=== PATIENT | male | born 1950 | race Caucasian/White ===

== ENCOUNTER → 2018-07-02 | Outpatient (CLI) | payer MEDICARE, OTHER ==
[~2018-07-02] MED LIST: ASPI81CH PO; ATEN25; CIPR500 PO; CYCL10 PO; Clobetasol Emol15 GM; DIAZ10 PO; DIAZ5; EPIN.3I; GABA300 PO; METF500 PO; METF500C PO; METR500 PO; NITR.6SL PO; OMEP20ER; ONDA4ODT MM; OXYC5 PO; PROM25 PO; Prilosec Otc20 MG PO; SACC250C PO; SOMA350 MG PO; TERA5 PO; Ultram50 MG PO; ZESTORETIC 20-121 EA PO; Zofran Odt4 MG SL
== END | disposition home or self-care (01) ==
LOC: LAB SHORT 11:28 → PLD 11:28
DX: D48.5 Neoplasm of uncertain behavior of skin (principal)
CPT/HCPCS: 88305

== ENCOUNTER 2019-03-06 05:50 | Day surgery (SDC) | payer MEDICARE, OTHER ==
[~2019-03-06] VITALS: Ht 200.7 cm; Wt 112.0 kg
--- NOTE | 2019-03-06 08:36 | NUR ---
PT ARRIVED BACK TO RECOVERY ROOM IN [facility]. RIGHT RADIAL TR BAND SITE STABLE WITH TR BAND AND WRIST BOARD IN PLACE. PT DRINKING COFFEE WITH FAMILY MEMBERS IN ROOM. PT DENIES CP. CALL LIGHT IN REACH.
--- NOTE | 2019-03-06 08:44 | NUR ---
DR GOODEN IN ROOM TO CONSULT WITH FAMILY AND PT.
--- NOTE | 2019-03-06 10:12 | NUR ---
DR LYMAN IN ROOM TO SEE PT AND FAMILY.
--- NOTE | 2019-03-06 10:54 | NUR ---
7 CC OF AIR REMOVED OVER 10 MIN FROM NOW DEFLATED RIGHT TR BAND - NO BLEEDING AND NO HEMATOMA. DISCHARGE INSTRUCTIONS REVIEWED ALL QUESTIONS ANSWERED.
--- NOTE | 2019-03-06 11:35 | NUR ---
DEFLATED RIGHT TR BAND REMOVED AND POLYMEM PLACED OVER SITE WITH WRIST BOARD IN PLACE - RIGHT RADIAL SITE SOFT NON-TENDER WITH NO HEMATOMA AND NO BLEEDING. 20 G IV DISCONTINUED FROM LEFT AC WITH INTACT CANNULA. RIGHT ARM SLING PLACED AND PT ESCORTED OUT VIA WHEELCHAIR ESCORT.
== END 2019-03-06 11:56 | disposition home or self-care (01) ==
LOC: MHTC 05:50
PROC: B201YZZ Plain Radiography of Multiple Coronary Arteries using Other Contrast (ICD-10-PCS; principal; 2019-03-06)
PROC: 4A033BC Measurement of Arterial Pressure, Coronary, Percutaneous Approach (ICD-10-PCS; principal; 2019-03-06)
PROC: 4A023N7 Measurement of Cardiac Sampling and Pressure, Left Heart, Percutaneous Approach (ICD-10-PCS; principal; 2019-03-06)
DX: I25.119 Atherosclerotic heart disease of native coronary artery with unspecified angina pectoris (principal); E78.00 Pure hypercholesterolemia, unspecified; I10 Essential (primary) hypertension; G89.29 Other chronic pain; M54.5 Low back pain; G47.33 Obstructive sleep apnea (adult) (pediatric); E66.9 Obesity, unspecified; Z88.2 Allergy status to sulfonamides; Z88.8 Allergy status to other drugs, medicaments and biological substances; Z95.5 Presence of coronary angioplasty implant and graft; Z79.899 Other long term (current) drug therapy; Z87.891 Personal history of nicotine dependence; Z68.27 Body mass index [BMI] 27.0-27.9, adult; Z99.89 Dependence on other enabling machines and devices
CPT/HCPCS: 85347; 93458; 93571; 99152; 99153; C1769; C1887; C1894; J0153; J1644; J2250; J3010; J7030; Q9967

== ENCOUNTER → 2019-12-20 | Outpatient (CLI) | payer MEDICARE, OTHER ==
[2019-12-20 10:30] LABS: BASOPHILS ABSOLUTE AUTO 0.05 K/mm3 (0.00-0.23); BASOPHILS PERCENT AUTO 1 % (0-2); EOSINOPHILS ABSOLUTE AUTO 0.25 K/mm3 (0.00-0.68); EOSINOPHILS PERCENT AUTO 3 % (0-6); Hematocrit 47.1 % (37.0-53.0); Hemoglobin 16.3 g/dL (13.5-17.5); IMMATURE GRAN ABSOLUTE AUTO 0.01 K/mm3 (0.00-0.10); IMMATURE GRAN PERCENT AUTO 0 % (0-1); LYMPHOCYTES ABSOLUTE AUTO 2.03 K/mm3 (0.84-5.20); LYMPHOCYTES PERCENT AUTO 26 % (21-46); MONOCYTES ABSOLUTE AUTO 0.71 K/mm3 (0.16-1.47); MONOCYTES PERCENT AUTO 9 % (4-13); Mean Corpuscular HGB Conc 34.6 g/dL (31.5-36.5); Mean Corpuscular Volume 93 fL (80-100); Mean Platelet Volume 11.4 fL (9.1-12.4); NEUTROPHILS ABSOLUTE AUTO 4.84 K/mm3 (1.96-9.15); NEUTROPHILS PERCENT AUTO 61 % (41-73); Platelet Count 206 K/mm3 (150-400); RDW Coefficient Variation 12.8 % (11.7-14.2); RDW Standard Deviation 43.8 fL (35.1-46.3); Red Blood Cell Count 5.09 M/mm3 (4.30-5.90); White Blood Cell Count 7.89 K/mm3 (4.00-11.30)
[2019-12-20 10:48] LABS: Alanine Aminotransfer (ALT/SGP 49 U/L (12-78); Albumin, Blood 3.9 g/dL (3.4-5.0); Albumin/Globulin Ratio 0.9 (0.8-1.8); Alk Phos 103 U/L (40-126); Anion Gap 8 mmol/L (6-16); Aspartate Aminotrans (AST/SGOT 23 U/L (12-37); Bilirubin, Total 0.4 mg/dL (0.1-1.0); Blood Urea Nitrogen 14 mg/dL (8-24); Bun/Creatinine Ratio 16.5 (12.0-20.0); CO2, Blood 27 mmol/L (21-32); Calcium, Blood 8.6 mg/dL (8.5-10.1); Chloride, Blood 100 mmol/L (98-108); Creatinine, Blood 0.85 mg/dL (0.60-1.20); Globulin, Blood 4.2 g/dL (2.2-4.0); Glomerular Filtration Rate >60 (60-); Glucose, Blood 112 mg/dL (70-99); Potassium, Blood 4.2 mmol/L (3.5-5.5); Sodium, Blood 135 mmol/L (136-145); Thyroid Stimulating Hormone 1.845 uIU/mL (0.360-4.800); Total Protein, Blood 8.1 g/dL (6.4-8.2)
== END | disposition home or self-care (01) ==
LOC: LAB EV 10:22 → LAB SHORT 10:22
PROVIDERS: Physician Assistant
DX: R13.10 Dysphagia, unspecified (principal); R53.83 Other fatigue
CPT/HCPCS: 80053; 84443; 85025; 87081